=== PATIENT | female | born 1955 | race Caucasian/White ===

== ENCOUNTER 2018-07-06 13:43 | Emergency (ER) | payer MEDICAID ==
--- NOTE | 2018-07-06 14:22 | Emergency Department Record ---
History of Present Illness - General Chief Complaint: Knee injury Stated Complaint: LT KNEE AND LOWER LEG JENNIFER/SWELLING Time Seen by Provider: 07/06/18 13:47 Source: Patient, RN notes reviewed Mode of Arrival: Ambulatory - History of Present Illness Initial Comments: fell 5 weeks ago and xrays done and than two weeks ago the area above the patella became swollen and red and painful and seen by Dr. Grossman and started on keflex 2 days ago. Not getting better and came to the ED for evaluation. Onset/Timin -: Week(s) Type of Injury: Other Place: Home Severity: Moderate Severity scale (1-10): 5 Improves With: Nothing Worsens With: Palpation, Weight bearing Associated Symptoms: Other Treatments Prior to Arrival: Other - Related Data Home Medications Medication Instructions Recorded Confirmed Last Taken Mometasone/Formoterol [Dulera 200 8.8 gm IH DAILY 07/06/18 07/06/18 Unknown Mcg/5 Mcg Inhaler] Umeclidinium Gwinner [Incruse 62.5 mcg IH DAILY 07/06/18 07/06/18 Unknown Ellipta] Allergies Allergy/AdvReac Type Severity Reaction Status Date / Time azithromycin [From Zithromax] Allergy hives Unverified 06/02/18 09:00 levofloxacin [From Levaquin] Allergy hives Unverified 06/02/18 09:00 Travel Screening - Travel/Exposure Within Last 30 Days Have you traveled within the last 30 days?: No Review of Systems Reviewed: No additional complaints except as noted below Constitutional: Reports: As per HPI. Denies: Chills, Fever, Malaise, Night sweats, Weakness, Weight change Eyes: Reports: As per HPI. Denies: Eye discharge, Eye pain, Photophobia, Vision change ENT: Reports: As per HPI. Denies: Congestion, Dental pain, Ear pain, Epistaxis , Hearing loss, Throat pain Respiratory: Reports: As per HPI. Denies: Cough, Dyspnea, Hemoptysis, Stridor, Wheezes Cardiovascular: Reports: As per HPI. Denies: Arrhythmia, Chest pain, Dyspnea on exertion, Edema, Murmurs, Orthopnea, Palpitations, Paroxysmal nocturnal dyspnea, Rheumatic Fever, Syncope Endocrine: Reports: As per HPI. Denies: Fatigue, Heat or cold intolerance, Polydipsia, Polyuria Gastrointestinal: Reports: As per HPI. Denies: Abdominal pain, Constipation, Diarrhea, Hematemesis, Hematochezia, Melena, Nausea, Vomiting Genitourinary: Reports: As per HPI. Denies: Abnormal menses, Discharge, Dyspareunia, Dysuria, Frequency, Hematuria, Incontinence, Retention, Urgency Musculoskeletal: Reports: As per HPI, Other (red swollen anterior knee above the patella). Denies: Arthralgia, Back pain, Gout, Joint swelling, Myalgia, Neck pain Skin: Reports: As per HPI. Denies: Bruising, Change in color, Change in hair/ nails, Lesions, Pruritus, Rash Neurological: Reports: As per HPI. Denies: Abnormal gait, Confusion, Headache, Numbness, Paresthesias, Seizure, Tingling, Tremors, Vertigo, Weakness Psychiatric: Reports: As per HPI. Denies: Anxiety, Auditory hallucinations, Depression, Homicidal thoughts, Suicidal thoughts, Visual hallucinations Hematological/Lymphatic: Reports: As per HPI. Denies: Anemia, Blood Clots, Easy bleeding, Easy bruising, Swollen glands Past Medical History - SOCIAL HISTORY Smoking Status: Never smoker Alcohol Use: None Drug Use: None - RESPIRATORY Hx Respiratory Disorders: Yes Hx Asthma: Yes - CARDIOVASCULAR Hx Cardio Disorders: Yes Hx Hypertension: Yes - NEURO Hx Neuro Disorders: Yes Hx Headaches: Yes - GI Hx GI Disorders: Yes Hx Irritable Bowel: Yes - Hx Genitourinary Disorders: Yes Hx Renal Disease: Yes - ENDOCRINE Hx Endocrine Disorders: Yes Hx Diabetes: Yes (type 2) Hx Thyroid Disease: No - MUSCULOSKELETAL Hx Musculoskeletal Disorders: Yes Hx Arthritis: Yes - PSYCH Hx Psych Problems: No - HEMATOLOGY/ONCOLOGY Hx Hematology/Oncology Disorders: Yes Hx Anemia: Yes Family Medical History Any Significant Family History?: No Physical Exam - General General Appearance: Alert, Oriented x3, Cooperative, Mild distress - Head Head exam: Normal inspection - Eye Eye exam: Normal appearance, PERRL Pupils: Normal accommodation - ENT ENT exam: Normal exam, Mucous membranes moist, Normal external ear exam, Normal orophraynx, TM's normal bilaterally Ear exam: Normal external inspection. negative: External canal tenderness Nasal Exam: Normal inspection. negative: Discharge, Sinus tenderness Mouth exam: Normal external inspection, Tongue normal Teeth exam: Normal inspection. negative: Dental caries Throat exam: Normal inspection. negative: Tonsillar erythema, Tonsillar exudate - Neck Neck exam: Normal inspection, Full ROM. negative: Tenderness - Respiratory Respiratory exam: Normal lung sounds bilaterally. negative: Respiratory distress - Cardiovascular Cardiovascular Exam: Regular rate, Normal rhythm, Normal heart sounds - GI/Abdominal GI/Abdominal exam: Soft, Normal bowel sounds. negative: Tenderness - Rectal Rectal exam: Deferred - exam: Deferred - Extremities Extremities exam: Normal capillary refill, Tenderness, Other (redness and swelling) - Back Back exam: Reports: Normal inspection, Full ROM. Denies: Muscle spasm, Rash noted, Tenderness - Neurological Neurological exam: Alert, Normal gait, Oriented X3, Reflexes normal - Psychiatric Psychiatric exam: Normal affect, Normal mood - Skin Skin exam: Dry, Intact, Normal color, Warm Course Vital Signs 07/06/18 13:47 Temperature 98.2 F Pulse Rate 82 Respiratory 18 Rate Blood Pressure 155/95 Pulse Ox 92 L - Reevaluation(s) Reevaluation #1: 07/06/18 16:[address] caputo and he came into the ED and saw the patient and she is following up with him in the clinic next week and her keflex was increased to four times a day 500 mg 07/06/18 16:13 Medical Decision Making - Lab Data Result diagrams: 07/06/18 14:30 07/06/18 14:30 Disposition Clinical Impression: Prepatellar bursitis Qualifiers: Laterality: left Qualified Code(s): M70.42 - Prepatellar bursitis, left knee Cellulitis Qualifiers: Site of cellulitis: extremity Site of cellulitis of extremity: lower extremity Laterality: left Qualified Code(s): L03.116 - Cellulitis of left lower limb Disposition: Home, Self-Care Condition: (1) Good Instructions: Knee Bursitis (ED) Additional Instructions: follow up with Dr caputo next week Forms: Patient Portal Access Time of Disposition: 16:15 Quality - Quality Measures Quality Measures: N/A - Blood Pressure Screening Does Patient Have Any of the Following: No Blood Pressure Classification: Hypertensive Reading Systolic Measurement: 155 Diastolic Measurement: 95 Screening for High Blood Pressure: < Pre-Hypertensive BP, F/U Documented > [ [id number]] Pre-Hypertensive Follow-up Interventions: Referral to alternative/primary care provider.
[2018-07-06 14:58] LABS: BASO % 0.7 % (0-6); EOS % 4.6 % (0-6); GRAN % 52.4 % (47-80); HEMATOCRIT 42.6 % (35.0-47.0); HEMOGLOBIN 13.5 gm/dl (11.6-16.0); LYMPH % 31.6 % (16-45); MEAN CELL VOLUME 90.3 fl (81-97); MEAN CORPUSCULAR HEMOGLOBIN 28.6 pg (27-33); MEAN CORPUSCULAR HGB CONC 31.7 g/dl (32-36); MEAN PLATELET VOLUME 9.6 fl (7.4-10.4); MONO % 10.7 % (0-9); PLATELET COUNT 485 K/uL (130-400); RED BLOOD COUNT 4.72 M/uL (3.80-5.40); RED CELL DISTRIBUTION WIDTH 13.8 % (11.5-14.5); WHITE BLOOD COUNT W/O DIFF 8.4 K/uL (4.2-12.2)
[2018-07-06 15:15] LABS: C-REACTIVE PROTEIN 0.99 mg/dL (<0.5)
[2018-07-06] MEDS ORDERED: CEFTRIAXONE SODIUM 2 GM in 0.9 % SODIUM CHLORIDE 100ML 100 ML IVPB ONE (16:08)
--- NOTE | 2018-07-08 09:50 | Medical Records Consult ---
DATE OF CONSULTATION: 07/06/2018 REASON FOR CONSULTATION: Left knee pain. HISTORY OF PRESENT ILLNESS: This 63-year-old female was seen in the emergency department at [facility] at the request of Dr. Steven Jones for evaluation of her left knee. She reports that approximately 5 weeks ago, her dog got the leash tangled around her foot. She stumbled and fell and landed directly on her left knee and did have an abrasion at that time. She happened to be on steroids at that time for her airway disease and did not really notice any swelling immediately but then a few weeks later she noticed that her knee began to swell about 2 weeks ago. She went to Dr. Grossman who is her primary care physician and she was started on Keflex 500 mg b.i.d. for the past 48 hours. The skin abrasion had completely healed up and the redness and swelling just progressively got worse over the past 2 weeks or so. At this point in time, she has been using a cane because it is painful to walk. She noticed some redness over the anterior aspect of her knees with some prepatellar bursal swelling being noted. The patient went to the emergency department at [facility] where x-rays were obtained. The films demonstrated some osteoarthritic change of the knee. These are not weightbearing films but marginal osteophytes are present on the femoral condyles and at the patellofemoral joint. Most recent films show some soft tissue swelling. The patient's CRP was 0.7 and her white count was normal today. PHYSICAL EXAMINATION: The physical examination of her left knee shows [id number] amount of prepatellar bursal swelling, some very mild erythema has been noted. She has been taking Keflex 500 mg twice a day for 48 hours and has noticed some decrease in the erythema of her knee. She says it is quite tender to palpation, and she uses a cane because it is somewhat painful to walk on. There is a small area which is about 3 possibly 4 cm of what appears to be prepatellar bursal swelling. This area shows mild erythema. It is equivocal as to whether or not she actually has a joint effusion. She is morbidly obese and it is somewhat difficult to tell. The posterior aspect of her knee is not painful. The medial and lateral joint lines are also not painful. Mild swelling of the lower leg is present. She has not been elevating her leg. The neurovascular status appears to be intact. DIAGNOSTIC IMPRESSION: 1. Prepatellar bursitis of the left knee. 2. Mild osteoarthritis of the left knee. RECOMMENDATIONS: I have discussed the findings with her and I have recommended increasing her Keflex to 500 mg q.6 h. I would like to see her back in the clinic on 07/15/2018 for reevaluation of her left knee. She may be weightbearing as tolerated. Use a cane as needed. When she is not ambulating, I have recommended that she should have her heel higher than her heart to try to get some of the swelling out of her left lower leg. Should she have any problems prior to being seen, she was instructed to call my office. ISAIAS
== END 2018-07-06 17:05 | disposition home or self-care (01) ==
LOC: ER 13:43
DX: L03.116 Cellulitis of left lower limb (principal); M70.42 Prepatellar bursitis, left knee; I10 Essential (primary) hypertension; E11.9 Type 2 diabetes mellitus without complications; Z79.4 Long term (current) use of insulin
CPT/HCPCS: 80048; 85025; 86140; 96365; 99284